=== PATIENT | male | born 1945 | race Two or more races ===

== ENCOUNTER 2017-09-16 13:23 | Outpatient (CLI) | payer OTHER | END 2017-09-16 13:28 | disposition home or self-care (01) | LOC: NUCLEAR 13:23 | DX: M81.0 Age-related osteoporosis without current pathological fracture (principal); M85.9 Disorder of bone density and structure, unspecified ==

== ENCOUNTER 2022-01-30 14:17 | Emergency (ER) | payer OTHER ==
[~2022-01-30] VITALS: Ht 165.1 cm; Wt 78.0 kg
[2022-01-30] MEDS ORDERED: ABANEU-SL TABL1 EACH SL (14:27)
[2022-01-30] MEDS ORDERED: ATORVASTATIN CA20 MG PO (14:27)
[2022-01-30] MEDS ORDERED: TAMSULOSIN HCL0.4 MG PO (14:27)
[2022-01-30] MEDS ORDERED: AMLODIPINE BESYL5 MG PO (14:27)
[2022-01-30] MEDS ORDERED: LEVOTHYROXINE25 MCG PO (14:28)
== END 2022-01-30 16:46 | disposition home or self-care (01) ==
LOC: ER 14:17
DX: S09.90XA Unspecified injury of head, initial encounter (principal); W18.30XA Fall on same level, unspecified, initial encounter; Y93.9 Activity, unspecified; Y92.019 Unspecified place in single-family (private) house as the place of occurrence of the external cause; M54.50 Low back pain, unspecified; E03.9 Hypothyroidism, unspecified; I10 Essential (primary) hypertension

== ENCOUNTER 2024-09-13 07:30 | Outpatient (CLI) | payer OTHER ==
[~2024-09-13 07:30] MED LIST: ABANEU-SL TABL1 EACH SL; AMLODIPINE BESYL5 MG PO; ATORVASTATIN CA20 MG PO; LEVOTHYROXINE25 MCG PO; TAMSULOSIN HCL0.4 MG PO
== END 2024-09-13 07:33 | disposition home or self-care (01) ==
LOC: LAB 07:30
PROVIDERS: ATTEND Orthopaedic Surgery
DX: E55.9 Vitamin D deficiency, unspecified (principal); M85.9 Disorder of bone density and structure, unspecified; E56.1 Deficiency of vitamin K